=== PATIENT | female | born 1940 | race Caucasian/White ===

== ENCOUNTER 2018-11-13 07:36 | Inpatient (IN) ==
[~2018-11-13 07:36] MED LIST: ANTIVERT PO ONE; BENADRYL IV ONE; NS 1,000 ML IV ONE; REGLAN IV ONE
--- NOTE | 2018-11-13 08:04 | EKG Report ---
Test Performed on : 11/13/2018 08:02:15 AM Test Reason : Stroke like symptoms Blood Pressure : / mmHG Vent. Rate : 092 BPM Atrial Rate : 092 BPM P-R Int : 196 ms QRS Dur : 072 ms QT Int : 360 ms P-R-T Axes : 069 012 070 degrees QTc Int : 445 ms Normal sinus rhythm. with sinus arrhythmia. Normal ECG No previous ECGs available Unconfirmed Result
[2018-11-13 08:29] LABS: BASO# 0.03 X1000 (0.0-0.2); BASO% 0.5 % (0.0-0.8); EOS# 0.01 X1000 (0.0-0.7); EOS% 0.2 % (0.0-10.0); HEMATOCRIT 39.8 % (37.0-47.0); HEMOGLOBIN 13.1 g/dL (12.0-16.0); LYMPH# 1.08 X1000 (1.2-3.4); LYMPH% 17.4 % (20.5-51.1); MCH 29.4 PG (27-31); MCHC 32.9 g/dL (33-37); MCV 89.4 FL (81-99); MONO# 1.05 X1000 (0.11-0.59); MPV 9.2 FL (7.4-10.4); NEUT# 4.02 X1000 (1.4-6.5); NEUT% 64.9 % (42.2-75.2); PLT 351 X1000 (130-400); RBC 4.45 XMIL (4.2-5.4); RDW 13.2 % (11.5-14.5); WBC 6.19 X1000 (4.8-10.8)
[2018-11-13] MEDS ORDERED: REGLAN ONE (08:41)
[2018-11-13] MEDS ORDERED: ANTIVERT ONE ×2 (08:41→08:47)
[2018-11-13] MEDS ORDERED: BENADRYL ONE (08:42)
[2018-11-13] MEDS ORDERED: NS 1,000 ML ONE (08:42)
[2018-11-13 08:46] LABS: INR 0.93; PROTIME 13.2 Seconds (11.0-16.0)
[2018-11-13 08:47] LABS: PTT 34.7 Seconds (22.3-41.8)
[2018-11-13 08:53] LABS: AGAP 9; ALB/GLOB RATIO 1.9; ALBUMIN 4.6 g/dL (3.5-5.0); ALKALINE PHOSPHATASE 81 U/L (32-104); BUN 14 mg/dL (8-22); CALCIUM 9.2 mg/dL (8.8-10.2); CHLORIDE 96 mmol/L (98-107); COSMO 276; CREATININE 0.5 mg/dL (0.5-0.9); ESTIMATED GFR > 60; GLUCOSE 100 mg/dL (70-104); GOT 15 U/L (10-30); GPT 15 U/L (10-36); POTASSIUM 3.6 mmol/L (3.5-5.1); SODIUM 138 mmol/L (136-145); TCO2 33 mmol/L (25-35)
--- NOTE | 2018-11-13 09:05 | PROVIDER DOCUMENTATION ---
HPI-Neurological Disorder - General Chief Complaint: Weakness Stated Complaint: earache/weakness/n/v Time Seen by Provider: 11/13/18 07:36 Source: patient, EMS - History of Present Illness-Neuro Nature of Presenting Problem: SUdden onset bilateral ear pain, n/v and off balance feeling on waking this am. Has had similar symptoms in the past d/t "inner ear" problems. Brought by EMS, who reports "stroke scale negative," and normal vitals. Denies numbness or lateralizing symptoms. Does note generalized weakness. States has had ear problems all her life. This am she put sweet oil in both ear canal to relieve symptoms. Severity: reports: moderate Onset/Duration: reports: 1-3 hours ago Timing: reports: still present, constant Context: reports: seizure activity (dizzy) Approximate time patient was last seen normal?: 22:00 Character of Deficits: reports: new weakness (generalized) New weakness or altered sensation location:: reports: general (diffuse) Cognitive Baseline: alert, oriented x3 Gait Baseline: walks without assistance Associated Symptoms: reports: decreased ability to walk or stand, dizziness, nausea, trouble walking, weakness Similar Symptoms Previously?: Yes ("inner ear") Recently seen or treated by another doctor?: No Review of Systems - Adult - REVIEW OF SYSTEMS - ADULT Constitutional: reports: no symptoms reported Eyes: reports: no symptoms reported Ears, Nose, Mouth & Throat: reports: see HPI, ear pain. denies: ear discharge, hearing loss, tinnitus Cardiovascular: reports: no symptoms reported Respiratory: reports: no symptoms reported Gastrointestinal: reports: no symptoms reported Genitourinary: reports: no symptoms reported Musculoskeletal: reports: no symptoms reported Integumentary: reports: no symptoms reported Neurological: reports: see HPI, dizziness/vertigo Psychiatric: reports: no symptoms reported Endocrine: reports: no symptoms reported Hematologic/Lymphatic: reports: no symptoms reported Allergic/Immunologic: reports: no symptoms reported All Other Systems: Reviewed and Negative Past History - Adult - PAST MEDICAL HISTORY-ADULT Review of Records: reports: Old Records Reviewed, Nursing Assessment Review, Medications Reviewed, Social history reviewed & non-contributory. Major Childhood Illnesses: reports: denies history Cardiovascular: reports: HTN Respiratory: reports: denies history Gastrointestinal: reports: denies history Obstetrical/Gynecological: reports: denies history Genitourinary: reports: denies history Musculoskeletal: reports: denies history Neurological: reports: CVA Endocrine/Immune: reports: denies history Other Conditions: reports: denies history - PRIOR SURGERIES/PROCEDURES Surgical/Procedure History: reports: reviewed, not pertinent - IMMUNIZATION STATUS Childhood Immunizations: UTD - FAMILY HISTORY Family History: reviewed, not pertinent - SOCIAL HISTORY Smoking: non-smoker Substance Use: none/never Alcohol Use Frequency: never Living Situation: family Physical Exam- Neurological - Physical Exam-Neuro Initial Vital Signs Reviewed: Yes General Appearance: appears well, alert, no apparent distress Eye Exam: bilateral eye: normal inspection, PERRL, EOMI HENMT: normocephalic/atraumatic, moist mucous membranes, normal ENT inspection, TMs normal, pharynx normal Head Injury: no evidence of injury Neck: non-tender, full range of motion, supple, normal inspection Respiratory: chest non-tender, lungs clear, normal breath sounds, no pleuratic chest pain, no respiratory distress, no accessory muscle use Cardiovascular: normal peripheral pulses, regular rate, rhythm, no edema, no gallop, no JVD, no murmur Abdominal Exam: normal bowel sounds, non tender, soft, no organomegaly, no pulsatile mass Lymphatic: no adenopathy Extremity: normal range of motion, non-tender, normal gait, normal inspection, no pedal edema, no calf tenderness, 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 Exam: normal hearing, normal speech, PERRL Coordination/Gait: normal finger to nose, normal gait, negative Romberg's sign Motor/Sensory: no motor deficit, no sensory deficit, no pronator drift, negative Babinski's sign, positive Babinski's sign 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 II-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 nml as tested, grossly normal, no motor/sensory deficits, abnormal cerebellar tests, abnormal gait (ataxia) Integumentary: normal color, normal turgor Psych/Mental Status: normal mood/affect, normal thought content, normal thought process, oriented x 3, anxious - Glascow Coma Scale Best Eye Response: (4) open spontaneously Best Verbal Response: (5) oriented Best Motor Response: (6) obeys commands Progress - PLAN OF CARE/RESULTS Progress/Plan/Lab Results: Vital Signs - 8 hr 11/13/18 08:11 Temperature 98.7 F Pulse Rate 91 H Respiratory Rate 18 Blood Pressure 181/92 O2 Sat by Pulse Oximetry 96 Laboratory Results - last 24 hr 11/13/18 11/13/18 11/13/18 08:09 08:09 08:09 WBC 6.19 RBC 4.45 Hgb 13.1 Hct 39.8 MCV 89.4 MCH 29.4 MCHC 32.9 L RDW Std Deviation 13.2 Plt Count 351 MPV 9.2 Immature Gran % (Auto) 0.0 Neut % (Auto) 64.9 Lymph % (Auto) 17.4 L [place] % (Auto) 17.0 H Eos % (Auto) 0.2 Baso % (Auto) 0.5 Immature Gran # (Auto) 0.00 Neut # (Auto) 4.02 Lymph # (Auto) 1.08 L [place] # (Auto) 1.05 H Eos # (Auto) 0.01 Baso # (Auto) 0.03 PT 13.2 INR 0.93 PTT (Actin FS) 34.7 Sodium 138 Potassium 3.6 Chloride 96 L Carbon Dioxide 33 Anion Gap 9 BUN 14 Creatinine 0.5 Estimated GFR/1.73 m2 > 60 BUN/Creatinine Ratio 28 Glucose 100 POC Glucose Calculated Osmolality 276 Calcium 9.2 Total Bilirubin 0.30 AST 15 ALT 15 Alkaline Phosphatase 81 Troponin T Total Protein 7.0 Albumin 4.6 Globulin 2.4 Albumin/Globulin Ratio 1.9 Urine Source Urine Color Urine Turbidity Urine pH Ur Specific Cisco Urine Protein Ur Glucose (Stick) Ur Ketones (Stick) Urine Blood Urine Nitrite Urine Bilirubin Urobilinogen Dipstick Urine Leukocytes Urine WBC (Auto) Urine RBC (Auto) U Epithel Cells (Auto) Urine Bacteria (Auto) Urine Opiates Screen Ur Oxycodone Screen Ur Methadone, Qual Ur Barbiturates Screen Ur Phencyclidine Scrn Ur Amphetamines Screen U Benzodiazepines Scrn Urine Cocaine Screen U Cannabinoids Screen 11/13/18 11/13/18 11/13/18 08:09 08:10 09:56 WBC RBC Hgb Hct MCV MCH MCHC RDW Std Deviation Plt Count MPV Immature Gran % (Auto) Neut % (Auto) Lymph % (Auto) [place] % (Auto) Eos % (Auto) Baso % (Auto) Immature Gran # (Auto) Neut # (Auto) Lymph # (Auto) [place] # (Auto) Eos # (Auto) Baso # (Auto) PT INR PTT (Actin FS) Sodium Potassium Chloride Carbon Dioxide Anion Gap BUN Creatinine Estimated GFR/1.73 m2 BUN/Creatinine Ratio Glucose POC Glucose 105 H Calculated Osmolality Calcium Total Bilirubin AST ALT Alkaline Phosphatase Troponin T < 0.010 Total Protein Albumin Globulin Albumin/Globulin Ratio Urine Source CLEAN CATCH Urine Color YELLOW Urine Turbidity HAZY Urine pH 8.5 Ur Specific Cisco 1.006 Urine Protein NEGATIVE Ur Glucose (Stick) NEGATIVE Ur Ketones (Stick) NEGATIVE Urine Blood NEGATIVE Urine Nitrite NEGATIVE Urine Bilirubin NEGATIVE Urobilinogen Dipstick NORMAL Urine Leukocytes LARGE A Urine WBC (Auto) TNTC A Urine RBC (Auto) <10 U Epithel Cells (Auto) <10 Urine Bacteria (Auto) 3+ Urine Opiates Screen Ur Oxycodone Screen Ur Methadone, Qual Ur Barbiturates Screen Ur Phencyclidine Scrn Ur Amphetamines Screen U Benzodiazepines Scrn Urine Cocaine Screen U Cannabinoids Screen 11/13/18 09:56 WBC RBC Hgb Hct MCV MCH MCHC RDW Std Deviation Plt Count MPV Immature Gran % (Auto) Neut % (Auto) Lymph % (Auto) [place] % (Auto) Eos % (Auto) Baso % (Auto) Immature Gran # (Auto) Neut # (Auto) Lymph # (Auto) [place] # (Auto) Eos # (Auto) Baso # (Auto) PT INR PTT (Actin FS) Sodium Potassium Chloride Carbon Dioxide Anion Gap BUN Creatinine Estimated GFR/1.73 m2 BUN/Creatinine Ratio Glucose POC Glucose Calculated Osmolality Calcium Total Bilirubin AST ALT Alkaline Phosphatase Troponin T Total Protein Albumin Globulin Albumin/Globulin Ratio Urine Source Urine Color Urine Turbidity Urine pH Ur Specific Cisco Urine Protein Ur Glucose (Stick) Ur Ketones (Stick) Urine Blood Urine Nitrite Urine Bilirubin Urobilinogen Dipstick Urine Leukocytes Urine WBC (Auto) Urine RBC (Auto) U Epithel Cells (Auto) Urine Bacteria (Auto) Urine Opiates Screen NONE DETECTED Ur Oxycodone Screen NONE DETECTED Ur Methadone, Qual NONE DETECTED Ur Barbiturates Screen NONE DETECTED Ur Phencyclidine Scrn NONE DETECTED Ur Amphetamines Screen NONE DETECTED U Benzodiazepines Scrn PRESUMPTIVE POSITIVE A Urine Cocaine Screen NONE DETECTED U Cannabinoids Screen NONE DETECTED Orders Category Date Time Status Cardiac Monitoring DIRECTED Care 11/13/18 07:35 Active Finger Stick Blood Sugar (ED) DIRECTED Care 11/13/18 07:35 Active Oxygen Therapy- ED Nursing DIRECTED Care 11/13/18 07:35 Active Saline Loc NOW Care 11/13/18 07:35 Active Straight Catheterization ORDERED Care 11/13/18 10:43 Active CHEST-PORTABLE [RAD] Stat Exams 11/13/18 07:[address] HEAD W/O CONTRAST [CT] Stat Exams 11/13/18 07:35 Completed CBC WITH ELECTRONIC DIFF [HEME] Stat Lab 11/13/18 08:09 Completed COMPREHENSIVE METABOLIC PANEL [CHEM] Stat Lab 11/13/18 08:09 Completed PROTIME WITH INR [COAG] Stat Lab 11/13/18 08:09 Completed PTT [COAG] Stat Lab 11/13/18 08:09 Completed TROPONIN T Stat Lab 11/13/18 08:09 Completed URINALYSIS W/POSS RFLX CULT [URINALYSIS] Stat Lab 11/13/18 09:56 Completed URINE CULTURE [RM] Routine Lab 11/13/18 10:31 Received URINE DRUG SCREEN Stat Lab 11/13/18 09:56 Completed 0.9% Sodium Chloride Inj [Ns] 1,000 ml Med 11/13/18 08:42 Discontinued .ROUTE As directed 0.9% Sodium Chloride Inj [Ns] 1,000 ml Med 11/13/18 07:36 Discontinued IV 999 mls/hr CefTRIAXONE [Rocephin] 1 gm Med 11/13/18 11:18 Active 0.9% Sodium Chloride Inj [Ns] 50 ml IV NOW Diphenhydramine [Benadryl] Med 11/13/18 07:36 Discontinued 25 mg IV NOW ONE Diphenhydramine [Benadryl] Med 11/13/18 08:42 Discontinued 50 mg .ROUTE .STK-MED ONE Labetalol Med 11/13/18 09:10 Discontinued 20 mg IV NOW ONE Labetalol Med 11/13/18 11:21 Discontinued 20 mg IV NOW ONE Meclizine [Antivert] Med 11/13/18 08:41 Discontinued 12.5 mg .ROUTE .STK-MED ONE Meclizine [Antivert] Med 11/13/18 08:47 Discontinued 37.5 mg .ROUTE .STK-MED ONE Meclizine [Antivert] Med 11/13/18 07:36 Discontinued 50 mg PO NOW ONE Metoclopramide [Reglan] Med 11/13/18 08:41 Discontinued 10 mg .ROUTE .STK-MED ONE Metoclopramide [Reglan] Med 11/13/18 07:36 Discontinued 10 mg IV NOW ONE EKG [EKG] Stat Ther 11/13/18 07:35 Draft Result Diagrams: 11/13/18 08:09 11/13/18 08:09 - REASSESSMENT Reassessment #1 Time Reassessed: 11:20 Status: unchanged (still with dizziness/hypertensive, doesn't feel well despite multiple meds. WIll give additional labetalol dose and ask hospitalist to admit) - XRAY 1 XRAY Study: Chest Impression: Normal, See EMR Report (EXAM: CHEST-PORTABLE HISTORY: stroke like symptoms TECHNIQUE: Chest single view COMPARISON: 02/06/2016 FINDINGS: The lungs are well expanded. The heart is not enlarged. The vessels are not distended. There are no infiltrates. No effusion identified. Mild scoliosis. IMPRESSION: Negative exam. Electronically signed by Williams Caicedo 11/13/2018 9:23 AM 11/13/18 0923 Interpreting Physician: Williams Caicedo MD Dictated Date/Time: 11/13/18 09) - CT/MRI 1 CT Study: Head Impression: Abnormal, See EMR Report ( EXAM: CT HEAD W/O CONTRAST HISTORY: stroke like symptoms TECHNIQUE: CT head without contrast. The exam was not completed until 9:50 AM. COMPARISON: None. FINDINGS: No parenchymal hemorrhage. No epidural or subdural hematoma. No subarachnoid hemorrhage. Old right cerebellar infarct. There are chronic microvascular ischemic changes. No mass identified on this noncontrasted exam. No hydrocephalus. No sinus opacification. 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 Electronically signed by Williams Caicedo 11/13/2018 9:53 AM 11/13/18 0953 Interpreting Physician: Williams Caicedo MD Dictated Date/Time: 11/13/18 0951 cc: Janes Mata MD; Gama Camacho) - CONSULTS/PCP/HOSPITALIST Notification #1 *Consult/PCP/Hospitalist*: YAIR Rosales Time Discussed: 11:26 Reason/Comments: Admit to [facility] Consult Disposition: Will see in ED Departure - Departure Date of Disposition Decision: 11/13/18 Time of Disposition Decision: 11:27 DIAGNOSIS: Dizziness, Ataxia, Hypertensive urgency, Complicated UTI (urinary tract infection) Disposition: ADMITTED INPATIENT 09 Certified Medical Emergency: Emergent Condition: Fair Referrals and Follow-Ups: Gama Camacho [Primary Care Provider] - - Critical Care Note This patient required my direct & personal management of CC.: Yes Total Time (mins): 40 (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 Attestation - Physician/ PAOLA Attestation Patient care was provided by Advanced Practice Provider:: No The physician spent face to face time with patient:: Yes Advanced Practice Provider documentation review:: Supervising physician onsite and consulted in the evaluation and care of this patient. The physician did have a face to face encounter with the patient. - NIH Stroke Scale NIH Type: Initial Evaluation Level of Consciousness: 0-Alert LOC Questions (ask month and age): 0-Answers Both Correctly LOC Commands (ask to open & close eyes;make a fist, let go): 0-Obeys Both Correctly Best Gaze (horizontal eye movement): 0-Normal Visual (use finger movement, counting or visual threat): 0-No Visual Loss Facial Palsy (show teeth or raise eyebrows & close eyes tght: 0-Symmetrical Movement Motor Function-left arm: 0-Normal Motor Function-right arm: 0-Normal Motor Function-left le-Normal Motor Function-right le-Normal Limb Ataxia(biedhs-[id number], or heel to joshi): 0-No Ataxia Sensory(pin prick to face,arms,trunk,legs-compare side/side): 0-No Ataxia Best Language(name item/read sentence.Ex-Down to Earth): 0-No Aphasia Dysarthria(Pt read words or say words Ex.Mama,Tip-Top,Thanks: 0-Normal Articulation Extinction and Inattention: 0-Normal NIH Total Score: 0 Modified Elaine Score Criteria: 1-no significant disability despite symptoms Stroke tPA Guidelines - Inclusion Criteria for IV tPA 18 years old or older: Yes Ischemic stroke with measurable deficit: No Onset <3 hours ago *OR* 3-4.5 hours ago: Yes - Consultation Candidate for:: NOT A CANDIDATE (symptoms began on wakeup)
[2018-11-13] MEDS ORDERED: LABETALOL IV ONE ×2 (09:10→11:21)
--- NOTE | 2018-11-13 09:25 | Diag Imaging Result Doc PS360 ---
EXAM: CHEST-PORTABLE HISTORY: stroke like symptoms TECHNIQUE: Chest single view COMPARISON: 02/06/2016 FINDINGS: The lungs are well expanded. The heart is not enlarged. The vessels are not distended. There are no infiltrates. No effusion identified. Mild scoliosis. IMPRESSION: Negative exam. Electronically signed by Williams Caicedo 11/13/2018 9:23 AM
--- NOTE | 2018-11-13 09:55 | Diag Imaging Result Doc PS360 ---
EXAM: CT HEAD W/O CONTRAST HISTORY: stroke like symptoms TECHNIQUE: CT head without contrast. The exam was not completed until 9:50 AM. COMPARISON: None. FINDINGS: No parenchymal hemorrhage. No epidural or subdural hematoma. No subarachnoid hemorrhage. Old right cerebellar infarct. There are chronic microvascular ischemic changes. No mass identified on this noncontrasted exam. No hydrocephalus. No sinus opacification. 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 Electronically signed by Williams Caicedo 11/13/2018 9:53 AM
[2018-11-13 10:03] LABS: URINE SOURCE CLEAN CATCH
[2018-11-13 10:12] LABS: BILIRUBIN URINE NEGATIVE (NEGATIVE); BLOOD URINE NEGATIVE (NEGATIVE); COLOR YELLOW; GLUCOSE URINE NEGATIVE (NEGATIVE); KETONE URINE NEGATIVE (NEGATIVE); LEUKOCYTES URINE LARGE (NEGATIVE); NITRITE URINE NEGATIVE (NEGATIVE); PH URINE 8.5; PROTEIN URINE NEGATIVE (NEGATIVE); SP GRAVITY URINE 1.006; TURBIDITY URINE HAZY (CLEAR); UROBILINOGEN URINE NORMAL (NORMAL)
[2018-11-13 10:13] LABS: UR EPITHELIAL CELLS <10 /HPF (<10); URINE BACTERIA 3+ /HPF; URINE RBC <10 /HPF (<10); URINE WBC TNTC /HPF (<10)
[2018-11-13 10:36] LABS: UR AMPHETAMINES QUAL NONE DETECTED (NONE DETECT); UR BARBITUATES QUAL NONE DETECTED (NONE DETECT); UR BENZODIAZEPIN QUAL PRESUMPTIVE POSITIVE (NONE DETECT); UR CANNABINOIDS QUAL NONE DETECTED (NONE DETECT); UR COCAINE QUAL NONE DETECTED (NONE DETECT); UR METHADONE QUAL NONE DETECTED (NONE DETECT); UR OPIATES QUAL NONE DETECTED (NONE DETECT); UR OXYCODONE QUAL NONE DETECTED (NONE DETECT); UR PCP QUAL NONE DETECTED (NONE DETECT)
[2018-11-13] MEDS ORDERED: ROCEPHIN 1 GM in NS 50 ML IV ONE (11:18)
--- NOTE | 2018-11-13 13:14 | HISTORY AND PHYSICAL ---
HISTORY OF PRESENT ILLNESS: Ms. Mcgregor is an 78-year-old. She is followed by Dr. Gama Camacho in [place]. She has had a history of labyrinth neuritis and vertigo, and she has had spells that have been pretty severe. PAST MEDICAL HISTORY: In 2013, she had a cerebellar stroke. Since that time, she has had trouble with urinary retention so I assume it is neurogenic urinary retention. She does self- catheterizations. She has a history of hypertension, but other than that, really not much past medical history. ALLERGIES: No known drug allergies. FAMILY HISTORY: She does not report any history of this vertigo in her family and no cardiac or renal disease. SOCIAL HISTORY: Negative for alcohol or tobacco or illicit drugs. REVIEW OF SYSTEMS: She denies any weight loss or gain. No fever or chills. HEENT/Neurological: She has had this vertigo for the last 24 hours. It has been pretty severe. Has still hold her head still. She has some lateral nystagmus to the left. It is accompanied by nausea. In the past, she has been treated with Antivert. I do not see any other new focal neurologic signs and no other focal neurologic complaints. Rest review of systems: No shortness of breath. Cardiovascular: No chest pain or tachy palpitation. Gastrointestinal and Genitourinary: Just some nausea accompanying the vertigo. No change in her bowels or her bowel habits. No gross hematuria or dysuria. She does have neurogenic bladder for which she does self-catheterizations I think q.4 h. We are going to go ahead and put a Sykes catheter in. Endocrinologic/Hematologic: No significant history. Musculoskeletal/Neurologic: As above. I do not see any new focal deficits. PHYSICAL EXAMINATION: GENERAL: In the emergency room, she is afebrile. Awake and alert and oriented x3. HEENT: Pupils are equal and round. Lateral nystagmus seems to be more prominent to the left. External canals are clear. Tympanic membranes appear unremarkable. Oral and nasal mucosa unremarkable. NECK: No cervical or supraclavicular adenopathy. No thyromegaly. Neck is supple. LUNGS: Clear in all lung thibodeaux. CARDIOVASCULAR: Regular rhythm and rate without murmur or S3. ABDOMEN: Soft. SKIN: Warm and dry. No rashes. No lesions. VITAL SIGNS: Temperature 98.7 degrees, pulse 90, respirations 18, blood pressure 181/92. DIAGNOSTIC STUDIES: White count 6190, hematocrit 39, platelet count 351,000. Sodium 138, potassium 3.6, chloride 96, BUN 14, creatinine 0.5, calcium 9.2, AST 15, ALT is 15. Troponin less than 0.01. Albumin 4.6. Pro-time is 13.2, PTT is 34. Urinalysis: Presumptive positive for benzodiazepines but negative for opiates, oxycodone, methadone, barbiturates, phencyclidine, amphetamines, cocaine, and cannabinoids. Urine: Zxl-[id number]-nl count white blood cells. 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 We will re-culture her urine and give her a little higher dose of Keflex IV. Chest x-ray on presentation: Negative. No infiltrates. Cardiomediastinal silhouette unremarkable. Lungs are well expanded. Her head CT without contrast: No hemorrhage. Old right cerebellar infarct with chronic microvascular ischemic changes, nothing new. ASSESSMENT AND PLAN: Labyrinth neuritis with severe vertigo accompanied by lateral nystagmus. I do not see any new focal neurologic deficits and do not see any sign of extension of cerebellar infarct. Of course, probably would need an MRI to be more conclusive on that. We are going to try some Antivert high dose 25 mg q.6 h. p.o., and I am going to give her some Solu-Medrol. We will probably also put her on some guaifenesin, just to see if it will help, guaifenesin ER 1200 mg twice a day. I will give her fluids at normal saline 100 mL an hour. We will watch her blood pressure. I think her blood pressure is a little high because of her labyrinthitis and vertigo. We can give her some p.r.n. to help with blood pressure. Hopefully, will not have to stay very long. I think it is reasonable to check her B12 and folate and also to check her T4 and TSH and make sure those are okay. cc: Kal [facility] MD
[2018-11-13] MEDS: KEFLEX PO SCH ×2 (13:34→21:43)
[2018-11-13] MEDS: ANTIVERT PO SCH ×2 (13:34→19:02)
[2018-11-13] MEDS: SOLU-MEDROL IV SCH ×2 (13:36→21:44)
[2018-11-13] MEDS: NS 1,000 ML IV SCH (13:38)
[2018-11-13 15:22] LABS: FREE T4 1.43 ng/dL (0.93-1.70); TSH 1.18 uIUmL (0.27-4.20)
[2018-11-13] MEDS: ZOFRAN IV PRN ×2 (19:02→23:25)
[2018-11-13] MEDS ORDERED: ULTRAM PO ONE (20:38)
[2018-11-13] MEDS: TYLENOL PO PRN (21:43)
[2018-11-13] MEDS: MUCINEX PO SCH (21:44)
[2018-11-14] MEDS ORDERED: SODIUM CHLORIDE 0.9% INJ ONE (01:41)
[2018-11-14] MEDS ORDERED: PHENERGAN IV ONE (01:41)
[2018-11-14] MEDS: NS 1,000 ML IV SCH (02:05)
[2018-11-14] MEDS ORDERED: ATIVAN IV ONE (02:33)
[2018-11-14] MEDS: KEFLEX PO SCH ×4 (03:46→20:31)
[2018-11-14] MEDS: SOLU-MEDROL IV SCH ×2 (03:47→13:04)
[2018-11-14] MEDS: TYLENOL PO PRN ×2 (03:54→10:19)
[2018-11-14 06:53] LABS: HEMOGLOBIN 14.2 g/dL (12.0-16.0); MCH 30.1 PG (27-31); MCHC 33.8 g/dL (33-37); MPV 9.4 FL (7.4-10.4); RBC 4.72 XMIL (4.2-5.4); RDW 13.4 % (11.5-14.5); WBC 9.24 X1000 (4.8-10.8)
[2018-11-14 07:24] LABS: AGAP 17; BUN 10 mg/dL (8-22); CALCIUM 9.1 mg/dL (8.8-10.2); CHLORIDE 103 mmol/L (98-107); COSMO 285; CREATININE 0.4 mg/dL (0.5-0.9); ESTIMATED GFR > 60; GLUCOSE 158 mg/dL (70-104); POTASSIUM 3.3 mmol/L (3.5-5.1); SODIUM 142 mmol/L (136-145); TCO2 22 mmol/L (25-35)
[2018-11-14] MEDS: ANTIVERT PO SCH ×3 (09:13→20:31)
[2018-11-14] MEDS: MUCINEX PO SCH ×2 (09:13→20:31)
[2018-11-14] MEDS ORDERED: XANAX PO SCH (10:15)
[2018-11-14] MEDS: XANAX PO SCH ×3 (10:19→20:31)
[2018-11-14] MEDS: KLOR-CON PO SCH ×2 (11:05→14:07)
[2018-11-14] MEDS: PRILOSEC PO SCH ×2 (11:05→20:32)
[2018-11-14] MEDS: COZAAR PO SCH (11:05)
[2018-11-14] MEDS: ASPIRIN EC PO SCH (11:05)
[2018-11-14] MEDS: NORVASC PO SCH (11:05)
[2018-11-14] MEDS: TYLENOL ARTHRITIS PO SCH ×2 (11:16→20:32)
[2018-11-14] MEDS ORDERED: PHENERGAN IV PRN (13:11)
[2018-11-14] MEDS ORDERED: SODIUM CHLORIDE 0.9% INJ PRN (13:11)
[2018-11-14] MEDS: LIDODERM TOP SCH (14:16)
--- NOTE | 2018-11-14 15:11 | PROGRESS NOTE ---
DATE: 11/14/2018 INTERVAL HISTORY: No acute events overnight. The patient and her family were upset that her home medications could not be started. I explained to them about possible medications contributing to her ill health and that I wanted to assess her before I could resume that. SUBJECTIVE: Patient is feeling much better than yesterday. She denies any shortness of breath. She has been coughing recently more. She is complaining of intense neck pain and back pain which are chronic complaints. She is denying any more dizziness. She has not been able to get up yet. VITAL SIGNS: Temperature 99.7 degrees, pulse of 106, respiratory rate 16, blood pressure 150/65. She is saturating 94% on room air. PHYSICAL EXAMINATION: General: Does not appear in any acute distress. HEENT: Oral cavity is moist. Her pupils are bilaterally equal reacting to light. She has perception to light bilateral eyes. Lungs: Air entry bilaterally equal. No wheeze, rhonchi, crackles. Cardiovascular: S1, S2 normal. No murmur, rub, or gallop. Abdomen: Soft, nontender. Extremities: No lower extremity edema. Neurological: She is alert and oriented x3. Her hearing appears to be intact and she is able to understand my language. No facial drooping. No ptosis. Motor examination is bilaterally equal, 5/5 in upper and lower extremities. Reflexes are 2+ bilaterally. Sensation is intact. She has intact coordination without dysdiadochokinesia. LABS: Suggestive of hypokalemia, which is currently being repleted. MICROBIOLOGY: Urine culture has gram-negative joshua; sensitivities are pending. ASSESSMENT AND PLAN: 1. Acute onset bilateral ear pain with nausea and vomiting. This could be in the setting of her previously documented episodes of vestibular neuritis. She does have some symptoms of upper respiratory tract infection which could have triggered it. She has baseline mild hearing loss and there is no acute change in this, so labyrinthitis is less likely. I will treat her with intravenous steroids. I will also get an MRI of her brain to rule out new cerebellar infarct on top of her previous right cerebellar CVA. I will also get an ENT consult. 2. Others. Continue home alprazolam, amitriptyline for history of anxiety and insomnia. Continue home acetaminophen and tramadol for history of chronic back pain, neck pain, and arthritis. Continue cephalexin and follow up with urine culture results for history of multiple UTIs and neurogenic bladder. Continue Sykes catheter. Continue hydrochlorothiazide, losartan, and amlodipine for essential hypertension. 3. Disposition. I will have physical therapy evaluate the patient. I will await the MRI of the brain and ENT recommendations. Plan of care discussed with the patient's family and patient. All of their questions have been answered. cc: Alexander Antonio MD MTDD
--- NOTE | 2018-11-14 16:42 | Diag Imaging Result Doc PS360 ---
EXAM: MRI BRAIN W/WO CONTRAST INDICATION: Evaluate for new cerebellar CVA COMPARISON: CT dated 11/13/2018 and prior MRI dated 05/18/2017 FINDINGS: There is a prominent focus of wedge-shaped restricted diffusion involving the left cerebellar hemisphere extending to the vermis consistent with an acute infarct. It is not visualized on yesterday's CT when it was probably hyperacute. There is a second tiny focus of restricted diffusion involving the left cerebellar hemisphere inferolaterally. There is associated T2/FLAIR hyperintensity. There is stable encephalomalacia involving the right cerebellar hemisphere. There is stable patchy T2/FLAIR hyperintensity in the periventricular and subcortical white matter suggesting moderate microangiopathy. There is no discrete intracranial mass, mass effect, or intracranial hemorrhage. There is no evidence of abnormal intracranial enhancement. There is a small right mastoid air cell effusion. The surrounding soft tissues and bony structures are essentially unremarkable, otherwise. IMPRESSION: 1.Acute left cerebellar hemispheric infarct as described. 2.Other incidental/nonacute findings detailed above. Electronically signed by Mohan Schofield 11/14/2018 4:40 PM
[2018-11-14] MEDS: SINGULAIR PO SCH (20:31)
[2018-11-14] MEDS: ELAVIL PO SCH (20:32)
[2018-11-14] MEDS ORDERED: LIPITOR PO SCH (21:00)
[2018-11-15] MEDS: KEFLEX PO SCH ×2 (02:50→09:18)
[2018-11-15] MEDS ORDERED: SOLU-MEDROL IV SCH (06:00)
[2018-11-15] MEDS: ASPIRIN EC PO SCH (09:18)
[2018-11-15] MEDS: MUCINEX PO SCH ×2 (09:18→21:48)
[2018-11-15] MEDS: COZAAR PO SCH (09:18)
[2018-11-15] MEDS: NORVASC PO SCH (09:18)
[2018-11-15] MEDS: TYLENOL ARTHRITIS PO SCH ×2 (09:18→21:48)
[2018-11-15] MEDS: ANTIVERT PO SCH ×3 (09:18→17:02)
[2018-11-15] MEDS: ZANTAC PO SCH (09:18)
[2018-11-15] MEDS: HYDROCHLOROTHIAZIDE PO SCH (09:18)
[2018-11-15] MEDS: XANAX PO SCH ×3 (09:19→21:48)
[2018-11-15] MEDS: ULTRAM ER PO SCH (09:19)
[2018-11-15] MEDS: PRILOSEC PO SCH ×2 (09:19→21:48)
[2018-11-15] MEDS: LIDODERM TOP SCH (10:05)
[2018-11-15] MEDS ORDERED: KLOR-CON PO SCH (12:00)
[2018-11-15] MEDS: LEVAQUIN PO SCH (12:36)
[2018-11-15] MEDS ORDERED: NS 500 ML IV SCH (12:45)
--- NOTE | 2018-11-15 15:00 | Diag Imaging Result Doc PS360 ---
EXAM: CT ANGIOGRAM HEAD/NECK 11/15/2018 HISTORY: Evaluate for stenosis/thrombosis TECHNIQUE: This exam was performed using automated exposure control, adjustment of mA or kV according to patient size, and/or use of iterative reconstruction technique. COMMENT: 3-D MIPS were performed. There are atherosclerotic calcifications in the thoracic aorta. There is no evidence of dissection. 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 There are multiple nodular lesions in the thyroid gland particularly in the upper pole of the right lobe where there is a rounded hypodense nodule measuring 7 mm. There are atherosclerotic calcifications in the carotid bulbs bilaterally. Both common carotid arteries are patent. There is some narrowing of the proximal left internal carotid with apparent 50% diameter stenosis due to calcified plaque. There are atherosclerotic calcifications in the internal carotid siphons bilaterally. There is no evidence of occlusion or significant stenosis otherwise. There is a large encephalomalacic defect present in the left cerebellar hemisphere. There is also a defect in the inferior medial right cerebellar hemisphere. The abnormality on the left is more appreciable than on the previous examination of the head dated 11/13/2018. This may represent an involving infarct in the distribution of the superior cerebellar artery. 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 Ischemic changes in the cerebellum bilaterally, probably subacutely on the left. Electronically signed by Manoj Smith 11/15/2018 2:58 PM
--- NOTE | 2018-11-15 15:21 | PROGRESS NOTE ---
DATE: 11/15/2018 INTERVAL HISTORY: Patient got MRI of her brain yesterday which did detect new cerebellar CVA affecting left cerebellar region. The patient has been feeling slightly better today. She was able to stand up, and walk a few steps with the help of physical therapy. Echocardiogram has been ordered. Neurology consult has also been placed. SUBJECTIVE: She denies any chest pain or shortness of breath. She is still feeling very dizzy. I discussed with her about changing antibiotics for urinary tract infection. CT scan angiogram head and neck are pending. VITALS: Temperature 97.9 degrees, pulse 94, respiratory rate 18, blood pressure 140/80. She is saturating 99% on room air. Her orthostatic vitals were unremarkable yesterday. PHYSICAL EXAMINATION: Oral cavity is moist.Lungs: Air entry bilaterally equal. No wheeze, rhonchi or crackles. Heart: S1, S2 normal. Regular. No murmur, rub, or gallop. Abdomen: Soft, nontender. Extremities: No lower extremity edema. She is alert and oriented x3. 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 However, she has intact perception to light. She is able to move her eyes both sides of midline, able to raise eyebrows. Her speech appears intact. She has good cough reflex. No facial drooping. No ptosis. Her sensations are 5/5 bilateral upper and lower extremities. Power is 5/5 in bilateral upper and lower extremities. Reflexes: I did not check reflexes today. She does not have dysdiadochokinesia. I did not check her gait or finger- nose testing. LABORATORY: No CBC or BMP today, which I will recheck tomorrow. MICROBIOLOGY: Urine culture growing Enterobacter cloacae sensitive to Levaquin. IMAGING: Brain MRI suggestive of acute left cerebellar hemispheric infarct. ASSESSMENT AND PLAN: 1. Acute left cerebellar hemispheric infarct, probably causing her episode of dizziness and nausea on presentation. Allow permissive hypertension and hold antihypertensive medications for now. Continue current dose of aspirin, and increase the statin dose to 40 mg. She should get outpatient muscle enzymes, and liver function test as appropriate. I have discussed this with the patient's family members. Continue meclizine as needed. Follow up echocardiogram. CT scan angiography of head and neck reports as well as neurology evaluation to see if she should be on dual anti-platelet. 2. Prior history of documented vestibular neuritis. Her current episode now sounds more like related to CVA than vestibular neuritis. She does have baseline hearing impairment. I am holding her steroids for now. ENT consult has been placed. She should get outpatient ENT evaluation 3. Acute cystitis and neurogenic bladder with prior history of multiple UTI and current Enterobacter UTI. Continue Sykes catheter, and start patient on levofloxacin for a total of 7 days. 4. Outpatient Urology follow-up. 5. Others: Continue alprazolam and amitriptyline for history of anxiety and insomnia; acetaminophen and tramadol for history of chronic neck and back pain and arthritis; hold antihypertensive medication for allowing permissive hypertension and restart it 24 to 48 hours later. 6. Disposition: Continue physical therapy and occupational therapy. I will also have speech therapy evaluation, and the patient would like to go to rehab as appropriate. Social Work rehab consult has been placed. Plan of care extensively discussed with the patient's family at bedside. All of their questions have been answered. cc: Alexander Antonio MD
[2018-11-15] MEDS: ELAVIL PO SCH (21:48)
[2018-11-15] MEDS: LIPITOR PO SCH (21:48)
[2018-11-15] MEDS: SINGULAIR PO SCH (21:48)
--- NOTE | 2018-11-15 22:21 | CONSULTATION ---
DATE OF CONSULTATION: 11/15/2018 REASON FOR CONSULTATION: Ms. Mcgregor is 78 years old and she has had a stroke. HISTORY OF PRESENT ILLNESS: History from the patient is that she felt well and at baseline 3 days ago. She awoke 2 days ago feeling dizzy, nauseated and clumsy in the left arm. Dizziness was so prominent she could hardly stand. There might have been brief slurred speech. She did not have trouble swallowing. She has poor vision at baseline and did not notice vision to be worse than baseline. There was no diplopia. She had intense headache and pain in the ears. She presented to the hospital. Initial systolic blood pressures were 180s. Recent systolic blood pressures have ranged 130s to 160s. Workup includes brain MRI, showing acute left cerebellar infarction and old right cerebellar lucency typical of prior ischemic change. She reports having "stroke" approximately 20 years ago causing slurred speech with no definite focal neurologic feature and no definite right limb clumsiness. She has not had other stroke episode. There is no history of recent head injury. She has never had a seizure. She does not use ethanol. She does not smoke cigarettes. Risk factors include longstanding hypertension and dyslipidemia. She reports she has never had diagnosis of diabetes mellitus, but blood sugars are elevated here. MEDICATIONS: Home medicines include alprazolam, and urine drug screen was positive for benzodiazepine here. PHYSICAL EXAMINATION: On exam, she is awake, alert, attentive, appropriate. Speech is not dysarthric. Language function is intact. Memory is good. Head and neck are unremarkable. Visual thibodeaux are full, tested grossly by confrontational finger counting. Extraocular movements are full without significant left horizontal nystagmus apparent on brief confrontational exam. Facial motility is symmetric. Gag is intact. Tongue is midline. She can hear. I did not test her hearing carefully. Shoulder shrug is equal. Strength is good in the limbs. She did well on right [id number]. She had significant dystaxia with left [id number], mostly dysmetria with slight dyssynergia. Findings of ataxia are less prominent in the leg. I did not test her gait. She has a stocking pattern of sensory loss bilaterally. Reflexes are 2+ at the knees and barely trace at the ankles bilaterally. Plantar response is silent bilaterally. IMPRESSION AND PLAN: 1. Acute right cerebellar ischemic infarction with moderate left hemiataxia and no other definite deficit. She reports stable and improving in the last day or so. Regarding neurologic workup, I do not think we have to do anything further urgently. I think it would be reasonable to consider elective vascular workup. Echocardiogram and head CT angiogram are ordered. Carotid ultrasound or CT angiogram of the neck would be reasonable, but not urgent. I would continue aspirin, continue statin, continue treating blood pressure cautiously, consider treating blood sugar. Further plans will depend on these reports and on her clinical course. 2. She has clinical evidence of peripheral neuropathy, possibly diabetic neuropathy. She has significant family history of diabetes mellitus and some elevated blood sugars here. I do not think neuropathy needs urgent attention, but I would treat blood sugar aggressively. Thanks for asking Neurology to see Ms. Mcgregor. cc: MD LEE Villalta III
[2018-11-16 06:21] LABS: AGAP 11; BUN 16 mg/dL (8-22); CALCIUM 9.1 mg/dL (8.8-10.2); CHLORIDE 100 mmol/L (98-107); COSMO 275; CREATININE 0.5 mg/dL (0.5-0.9); ESTIMATED GFR > 60; GLUCOSE 97 mg/dL (70-104); POTASSIUM 3.8 mmol/L (3.5-5.1); SODIUM 137 mmol/L (136-145); TCO2 26 mmol/L (25-35)
[2018-11-16] MEDS: MUCINEX PO SCH (08:38)
[2018-11-16] MEDS: PRILOSEC PO SCH ×2 (08:38→22:25)
[2018-11-16] MEDS: ASPIRIN EC PO SCH (08:38)
[2018-11-16] MEDS: XANAX PO SCH ×3 (08:38→22:26)
[2018-11-16] MEDS: TYLENOL ARTHRITIS PO SCH ×2 (08:38→22:25)
[2018-11-16] MEDS: ULTRAM ER PO SCH (08:39)
[2018-11-16] MEDS: LEVAQUIN PO SCH (08:40)
[2018-11-16] MEDS: ZANTAC PO SCH (08:40)
[2018-11-16] MEDS: ANTIVERT PO SCH (08:41)
[2018-11-16] MEDS: LIDODERM TOP SCH (08:44)
--- NOTE | 2018-11-16 09:40 | ECHO REPORT ---
ORDER DATE: 11/15/2018 INTERPRETING PHYSICIAN: Barron Cuba MD. CLINICAL INDICATIONS: Stroke. M-MODE MEASUREMENTS: Left ventricle end diastole: 4.3 cm. Left ventricle end systole: 1.8 cm. Posterior wall: 0.8 cm. Interventricular septum: 1.0 cm. Left atrium: 3.7 cm. Aortic diameter: 3.6 cm. SUMMARY OF 2-DIMENSIONAL IMAGIN. The left ventricular function is normal, ejection fraction of 69%. There is no wall motion abnormality. The chamber is not enlarged. 2. There is mild calcification of mitral annulus. 3. The mitral valve opens normally. Color flow mapping unremarkable. 4. The pulse wave Doppler of mitral inflow shows an unusual filling pattern that suggests fusion of E and A wave, however, the patient may be in atrial flutter and that may explain this appearance. 5. Diastolic function cannot be properly evaluated in this case. 6. The velocity of the mitral annulus appears to be within normal range on the septal side at 7 and on the lateral side appears to be 8 cm/sec suggesting normal diastolic function. 7. The pulmonary venous flow appears to be grossly normal. 8. The aortic valve shows some sclerosis of the cusps without stenosis. 9. The pulmonic valve is unremarkable. 10.The tricuspid valve shows mild degree of regurgitation. The pulmonary pressure is estimated at 27 mmHg. 11.There is no pericardial effusion, no mass, and no thrombus. Clinical correlation is recommended. cc: MD Alexander Larose MD
--- NOTE | 2018-11-16 11:28 | PROGRESS NOTE ---
DATE: 11/16/2018 SUBJECTIVE: Ms. Mcgregor is awake and alert. She does not have any new complaints. She thinks dizziness might be a little bit less prominent today. She is not having headache right now. OBJECTIVE: Exam shows continued dystaxia with the left arm. There is no finding in the right arm. She has good lateral eye movement without nystagmus apparent. Visual thibodeaux are full. Facial motility is symmetric. Tongue is midline. Speech is not dysarthric. ASSESSMENT AND PLAN: I encouraged her to be careful with activities, particularly gait. We discussed potential bleeding complications with combination antiplatelet management. I believe best management would be to recommend aspirin and clopidogrel together, short term, probably 3 months if tolerated. If she has falls and bruising, we can reconsider. No other suggestions right now from Neurology. Thanks for asking me to see Ms. Mcgregor. cc: Genna Riley III, MD
[2018-11-16] MEDS ORDERED: ANTIVERT PO PRN (12:13)
[2018-11-16] MEDS: PLAVIX PO SCH (14:12)
--- NOTE | 2018-11-16 14:21 | PROGRESS NOTE ---
DATE: 11/16/2018 INTERVAL HISTORY: She underwent CT scan angiography of head and neck, which had suggested about 50% stenosis of left internal carotid artery which was not hemodynamically significant. Neurology had evaluated the patient, and agreed with the recommendations. 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 There was a concern for atrial flutter. However, patient did not have any telemetry events so it could be just related to her high heart rate. SUBJECTIVE: Patient is feeling much better than she did before. Denies any new complaints. She was able to sit on the potty chair. We discussed about possible rehab once the insurance approval happens. VITALS: Currently, temperature 97.7 degrees, pulse 100, respiratory rate 18, blood pressure 160/88 and saturating 100% on room air. PHYSICAL EXAMINATION: General: Does not appear in any acute distress. HEENT: Oral cavity is moist. Lungs: Air entry bilaterally equal. No wheeze, rhonchi, or crackles. Cardiovascular: S1, S2 normal. No murmur, rub, or gallop. Abdomen: Soft, nontender. Extremities: No lower extremity edema. Neurologic: She is alert and oriented x3. She does have visual impairment on both eyes. However, she has perception to light and she definitely can have some vision where she is able to imitate my actions on neurological examination. She is able to lift both upper and lower extremity above ground level. 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 LABORATORY DATA: Her BMP suggests resolution of hypokalemia. Normal kidney function. IMAGING: Echocardiogram had normal left ventricular ejection fraction. No mitral valve pathology. Apparently, patient mentioned that a doctor had previously told her that she had mitral valve prolapse, which is not visible on this echocardiogram. ASSESSMENT AND PLAN: 1. Acute left cerebellar hemispheric infarct leading to dizziness and nausea on presentation with prior history of right cerebellar infarct. Continue aspirin, high dose of atorvastatin, and add Plavix. Resume her antihypertensive medications. Bleeding risk is discussed with the patient, and they agreed with current management. 2. History of vestibular neuritis. Her current episode is unlikely to be related to that. She does have baseline hearing impairment. ENT recommendation is pending. She should get outpatient evaluation. 3. Acute cystitis with prior history of multiple UTIs and neurogenic bladder requiring self catheterization. Continue levofloxacin for Enterobacter UTI for a total of 7 days and outpatient Urology follow-up. 4. Others: Continue alprazolam and amitriptyline for history of anxiety and insomnia; acetaminophen and tramadol for history of chronic neck and back pain for arthritis. 5. Disposition: Continue physical therapy. We are awaiting insurance approval, and the plan is for her to go to [facility]. Continue physical therapy, occupational therapy and speech therapy. Plan of care discussed with the patient's family. All of their questions have been answered satisfactorily. cc: Alexander Antonio MD
[2018-11-16] MEDS: SINGULAIR PO SCH (22:25)
[2018-11-16] MEDS: LIPITOR PO SCH (22:25)
[2018-11-16] MEDS: ELAVIL PO SCH (22:25)
[2018-11-17] MEDS: PLAVIX PO SCH (09:04)
[2018-11-17] MEDS: TYLENOL ARTHRITIS PO SCH ×2 (09:04→21:48)
[2018-11-17] MEDS: PRILOSEC PO SCH ×2 (09:05→21:39)
[2018-11-17] MEDS: ZANTAC PO SCH (09:05)
[2018-11-17] MEDS: NORVASC PO SCH (09:05)
[2018-11-17] MEDS: LEVAQUIN PO SCH (09:05)
[2018-11-17] MEDS: LIDODERM TOP SCH (09:06)
[2018-11-17] MEDS: HYDROCHLOROTHIAZIDE PO SCH (09:06)
[2018-11-17] MEDS: ASPIRIN EC PO SCH (09:06)
[2018-11-17] MEDS: XANAX PO SCH ×3 (09:11→21:39)
[2018-11-17] MEDS: ULTRAM ER PO SCH (09:17)
[2018-11-17] MEDS: COZAAR PO SCH (09:20)
[2018-11-17] MEDS: MIRALAX PO SCH ×2 (17:31→21:39)
[2018-11-17] MEDS: ELAVIL PO SCH (21:39)
[2018-11-17] MEDS: LIPITOR PO SCH (21:39)
[2018-11-17] MEDS: SINGULAIR PO SCH (21:39)
--- NOTE | 2018-11-18 02:40 | PROGRESS NOTE ---
DATE: 11/17/2018 INTERVAL HISTORY: No acute events. The patient would like me to remove her Sykes catheter. She also wants a bowel regimen. She states she was able to walk until the end of the room using a walker. Denies anymore dizziness. However, complains of headache. PHYSICAL EXAMINATION: vital signs: Temperature 99.6 degrees, pulse 95, respiratory rate of 18, blood pressure of 150/84, saturating 97% on room air. General: Does not appear in any acute distress. Oral cavity is moist. Air entry bilaterally equal. No wheeze, rhonchi, or crackles. S1, S2 normal, regular. No murmur, rub, or gallop. Abdomen is soft, nontender. No lower extremity edema. She is alert and oriented x3. She has visual impairment in both eyes. However, she has preserved perception to light, and she is able to have gross vision where she could imitate my actions during neurological examination. She is able to lift both upper and lower extremities above ground level. On my examination, she does not demonstrate any dysdiadochokinesia. LABORATORY: No CBC or BMP today. ASSESSMENT AND PLAN: 1. Acute left cerebellar hemispheric infarct with past medical history of right cerebellar infarct leading to dizziness and nausea on presentation. Continue aspirin, high-dose statin, and add Plavix as per Neurology recommendation. Resume antihypertensive medication including her home amlodipine, hydrochlorothiazide, and losartan, and titrate the dose according to her response. 2. History of vestibular neuritis. However, current episode sounds more related to cerebellar infarction. At the time of admission, she was treated with intravenous steroids, which I stopped. Ears, Nose, and Throat was consulted, pending recommendation. However, she could get it evaluated outpatient. 3. Acute cystitis with prior history of multiple urinary tract infections and neurogenic bladder requiring self-catheterization, with Enterobacter urinary tract infection. Continue oral levofloxacin for 7 days and outpatient urology followup. We will remove Sykes catheter and continue her home intermittent self-catheterization. 4. Others. Continue alprazolam and amitriptyline for history of anxiety and insomnia; acetaminophen and tramadol for history of chronic neck and back pain; add MiraLAX for constipation. 5. Disposition. I have been informed that her health insurance has rejected [facility], so we are looking for other rehab options. Whenever that is available, the patient is okay to be discharged. Consults have been sent over, I think to either [facility] or [facility], I assume. Likely, patient will be discharged on Tuesday, since it is a weekend. Plan of care discussed with the patient and her family at bedside. All of their questions have been answered. cc: Alexander Antonio MD
[2018-11-18] MEDS: COZAAR PO SCH (11:00)
[2018-11-18] MEDS: TYLENOL ARTHRITIS PO SCH ×2 (11:04→21:59)
[2018-11-18] MEDS: ZANTAC PO SCH (11:04)
[2018-11-18] MEDS: LEVAQUIN PO SCH (11:04)
[2018-11-18] MEDS: HYDROCHLOROTHIAZIDE PO SCH (11:04)
[2018-11-18] MEDS: LIDODERM TOP SCH (11:04)
[2018-11-18] MEDS: ULTRAM ER PO SCH (11:06)
[2018-11-18] MEDS: XANAX PO SCH ×3 (11:08→21:59)
[2018-11-18] MEDS: NORVASC PO SCH (11:09)
[2018-11-18] MEDS: PRILOSEC PO SCH ×2 (11:09→22:00)
[2018-11-18] MEDS: PLAVIX PO SCH (11:09)
[2018-11-18] MEDS: MIRALAX PO SCH ×2 (11:09→22:00)
[2018-11-18] MEDS: ASPIRIN EC PO SCH (11:09)
--- NOTE | 2018-11-18 13:27 | PROGRESS NOTE ---
DATE: 11/18/2018 INTERVAL HISTORY: No acute events. SUBJECTIVE: Patient is feeling fine. She is complaining of some back pain and neck pain. She has not had a bowel movement in 3 days and she is requesting stool softeners. We discussed about her exam findings. We discussed about awaiting rehab placement. The patient denies any new complaints. VITALS: Temperature 97.6 degrees, pulse 89, respiratory rate 14, blood pressure 110/48, saturating 95% on room air. PHYSICAL EXAMINATION: She does not appear in acute distress. air entry bilaterally. No wheeze, rhonchi, crackles. Cardiovascular: S1, S2 normal. No murmur or gallop. Abdomen: Soft, nontender. No lower extremity edema. Neurologic: She is alert and oriented x3. She has visual impairment with both eyes. Her perception to light is present and she can imitate my movements. Her flatwork folder strength is 5/5. No dysdiadochokinesia. LABS: No CBC or BMP today. ASSESSMENT AND PLAN: 1. Acute left cerebellar hemispheric infarct. 2. Prior history of right cerebellar infarct. 3. History of vestibular neuritis. 4. Acute cystitis with multiple urinary tract infections. 5. Chronic anxiety. PLAN: Will do physical therapy, occupational therapy. Continue aspirin, Plavix and high-dose statin. Continue antihypertensive medication. Continue levofloxacin for enterobacter UTI. DISPOSITION: Awaiting bed availability at which time the patient will be transferred to rehab. The patient and her family agree with the plan. All of their questions have been answered. cc: Alexander Antonio MD MTDD
[2018-11-18] MEDS: METAMUCIL PO SCH (14:13)
--- NOTE | 2018-11-18 18:23 | PROGRESS NOTE ---
DATE: 11/18/2018 SUBJECTIVE: The patient reports feeling fine. Reports actually that she is not able to have bowel movements during the last few days. OBJECTIVE: Vital Signs: Temperature 98.5 degrees, heart rate 101, respiratory rate 20, blood pressure 138/69, O2 saturation 99% on room air. General: This is a 78-year-old, female, lying in bed, in no acute distress. Cardiovascular: S1, S2 heard. No murmurs, gallops, or rubs. Regular rate and rhythm. Respiratory: Clear bilaterally to auscultation. No work of breathing or using accessory muscles. Abdomen: Soft, nontender to palpation. Bowel sounds present. No organomegaly. Extremities: No clubbing, cyanosis, or edema. Peripheral pulses present in both legs. Neurological: She is alert and oriented x3. Visual impairment in both eyes. Motor strength 5/5 in both upper and lower extremities. LABORATORY DATA: Reviewed. ASSESSMENT AND PLAN: 1. Acute left cerebellar hemispheric infarct with past medical history of right cerebellar infarct leading to dizziness and nausea on presentation. At this point, we will continue with current management, in this case, aspirin, statin, and Plavix. Neurology is following this patient. Blood pressure medication has been resumed. Will continue to monitor. 2. History of vestibular neuritis. Aware. 3. Acute cystitis. We will continue with levofloxacin for 7 days total. 4. Disposition. At this point, patient is stable and patient is awaiting being sent to rehab. cc: Salomón Ordonez MD
[2018-11-18] MEDS: SINGULAIR PO SCH (21:59)
[2018-11-18] MEDS: LIPITOR PO SCH (21:59)
[2018-11-18] MEDS: ELAVIL PO SCH (22:00)
[2018-11-19] MEDS: ASPIRIN EC PO SCH (08:12)
[2018-11-19] MEDS: PRILOSEC PO SCH ×2 (08:12→22:40)
[2018-11-19] MEDS: COZAAR PO SCH (08:12)
[2018-11-19] MEDS: LEVAQUIN PO SCH (08:12)
[2018-11-19] MEDS: METAMUCIL PO SCH (08:12)
[2018-11-19] MEDS: TYLENOL ARTHRITIS PO SCH ×2 (08:13→22:39)
[2018-11-19] MEDS: ZANTAC PO SCH (08:14)
[2018-11-19] MEDS: PLAVIX PO SCH (08:14)
[2018-11-19] MEDS: HYDROCHLOROTHIAZIDE PO SCH (08:14)
[2018-11-19] MEDS: LIDODERM TOP SCH (08:15)
[2018-11-19] MEDS: NORVASC PO SCH (08:15)
[2018-11-19] MEDS: MIRALAX PO SCH ×2 (08:15→22:40)
[2018-11-19] MEDS: ULTRAM ER PO SCH (08:27)
[2018-11-19] MEDS: XANAX PO SCH ×3 (08:28→22:40)
--- NOTE | 2018-11-19 11:21 | PROGRESS NOTE ---
DATE: 11/19/2018 SUBJECTIVE: The patient reports feeling okay. No new neurological symptoms. OBJECTIVE: Vital signs: Temperature is 98.0, heart rate 91, respiratory rate 16, blood pressure 122/98, O2 saturation 92% on room air. General: The patient is an 78-year-old female lying in bed, in no acute distress. Cardiovascular: S1 and S2 heard. No murmurs, rubs or gallops. Regular rate and rhythm. Respiratory: Clear bilaterally to auscultation. No work of breathing or using accessory muscles. Abdomen is soft. Nontender to palpation. Bowel sounds present. No organomegaly. Extremities: No cyanosis, clubbing or edema. Peripheral pulses present in both legs. Neurologic: The patient is alert and oriented x3. The patient has visual impairment in both eyes. Motor strength 4 to 5/5 in both upper and lower extremities. ASSESSMENT AND PLAN: 1. Acute left cerebral hemispheric infarct with past medical history of right cerebral infarct leading to dizziness and nausea on presentation. At this point, the patient is stable. We will continue with aspirin, starting on Plavix. Neurology is following this patient. Plan for her is to send her to rehab facility. We will continue to monitor. 2. History of vestibular neuritis. Aware. 3. Acute cystitis. We will continue with levofloxacin to complete 7 days of antibiotics. 4. Disposition. We will continue to monitor this patient closely. At this point, she is stable and waiting for a rehab bed. cc: Salomón Ordonez MD
[2018-11-19] MEDS: ELAVIL PO SCH (22:39)
[2018-11-19] MEDS: LIPITOR PO SCH (22:40)
[2018-11-19] MEDS: SINGULAIR PO SCH (22:40)
[2018-11-20] MEDS: ULTRAM ER PO SCH (09:36)
[2018-11-20] MEDS: LIDODERM TOP SCH (09:36)
[2018-11-20] MEDS: ASPIRIN EC PO SCH (09:38)
[2018-11-20] MEDS: NORVASC PO SCH (09:38)
[2018-11-20] MEDS: TYLENOL ARTHRITIS PO SCH ×2 (09:38→21:09)
[2018-11-20] MEDS: ZANTAC PO SCH (09:38)
[2018-11-20] MEDS: METAMUCIL PO SCH (09:38)
[2018-11-20] MEDS: COZAAR PO SCH (09:39)
[2018-11-20] MEDS: PRILOSEC PO SCH ×2 (09:39→21:10)
[2018-11-20] MEDS: PLAVIX PO SCH (09:39)
[2018-11-20] MEDS: HYDROCHLOROTHIAZIDE PO SCH (09:39)
[2018-11-20] MEDS: LEVAQUIN PO SCH (09:39)
[2018-11-20] MEDS: MIRALAX PO SCH ×3 (09:40→21:10)
[2018-11-20] MEDS: XANAX PO SCH ×3 (09:40→21:10)
--- NOTE | 2018-11-20 10:04 | PROGRESS NOTE ---
DATE: 11/20/2018 Ms. Mcgregor is awake, alert, attentive. She continues to have dystaxia with the left arm. She does rapid alternating movements better with the right hand. There is no definite motor or sensory deficit. She has full visual thibodeaux. She has good lateral eye movements without nystagmus. Speech is not slurred now. She has been chewing and swallowing without difficulty. Disposition: She reports plans for discharge to rehab today. I concur with that plan. I will be glad to see her again if needed. Thanks for asking neurology to see Ms. Mcgregor cc: Genna Riley III, MD [facility]ia
--- NOTE | 2018-11-20 14:06 | PROGRESS NOTE ---
DATE: 11/20/2018 SUBJECTIVE: Patient reports feeling fine. No new neurological symptoms. No headaches. She reports some mild dizziness on and off. OBJECTIVE: Vital Signs: Temperature 98.3 degrees, heart rate 109, respiratory rate 16, blood pressure 128/60, O2 saturation 97% on room air. General Examination: This is a chronically ill- appearing 78-year-old female lying in bed, in no acute distress. Cardiovascular: S1, S2 heard. No murmurs, gallops, or rubs. Regular rate and rhythm. Respiratory: Clear bilaterally to auscultation. No work of breathing or using accessory muscles. Abdomen: Soft, nontender to palpation. Bowel sounds present. No organomegaly. Extremities: No clubbing, cyanosis, or edema. Peripheral pulses present in both legs. Neurological: Patient is alert and oriented x3. Motor strength 4/5 to 5/5 in both upper and lower extremities. ASSESSMENT AND PLAN: 1. 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 At this point, patient is stable. Neurology has been following her. The patient is on aspirin and also Plavix. At this point, patient is stable. 2. History of vestibular neuronitis. Aware. 3. Acute cystitis. We will continue levofloxacin to complete 7 days of antibiotics. DISPOSITION: At this point, we are waiting for her insurance company to get an approval to send her to rehabilitation facility. cc: Salomón Ordonez MD [facility]
[2018-11-20] MEDS: SINGULAIR PO SCH (21:09)
[2018-11-20] MEDS: LIPITOR PO SCH (21:09)
[2018-11-20] MEDS: ELAVIL PO SCH (21:10)
[2018-11-21] MEDS: HYDROCHLOROTHIAZIDE PO SCH ×2 (08:55→09:10)
[2018-11-21] MEDS: METAMUCIL PO SCH (08:55)
[2018-11-21] MEDS: PLAVIX PO SCH (08:56)
[2018-11-21] MEDS: ASPIRIN EC PO SCH (08:56)
[2018-11-21] MEDS: XANAX PO SCH ×2 (08:56→12:04)
[2018-11-21] MEDS: TYLENOL ARTHRITIS PO SCH (08:56)
[2018-11-21] MEDS: LEVAQUIN PO SCH (08:56)
[2018-11-21] MEDS: PRILOSEC PO SCH (08:56)
[2018-11-21] MEDS: COZAAR PO SCH ×2 (08:56→09:09)
[2018-11-21] MEDS: ZANTAC PO SCH (08:56)
[2018-11-21] MEDS: NORVASC PO SCH (08:56)
[2018-11-21] MEDS: LIDODERM TOP SCH ×2 (08:57→09:01)
[2018-11-21] MEDS: MIRALAX PO SCH (08:57)
[2018-11-21] MEDS: ULTRAM ER PO SCH (09:09)
--- NOTE | 2018-11-21 11:35 | DISCHARGE SUMMARY ---
ADMISSION DATE: 11/17/2018 DISCHARGE DATE: 11/21/2018 PRIMARY CARE PHYSICIAN: Dr. Gama Camacho. CONSULTATIONS: Consultations with Neurology and Cardiology. ADMISSION DIAGNOSIS: Labyrinth neuritis with severe vertigo accompanied by lateral nystagmus. DISCHARGE DIAGNOSES: 1. An acute left cerebellar hemispheric infarct with a past medical history of right cerebellar infarct. 2. History of vestibular neuronitis. 3. An acute cystitis. 4. Enterobacter cloacae complex urinary tract infection. SUMMARY OF FINDINGS: This is an 78-year-old female, who presented with a history of labyrinth neuritis and vertigo with spells that have been pretty severe. We did a CT of the head on 11/13/2018 that showed no hemorrhage, and an old right cerebellar infarct with chronic microvascular ischemic changes. We did a brain MRI on 11/14/2018 that showed an acute left cerebellar hemispheric infarct. An echocardiogram was done on 11/15/2018 that showed an ejection fraction of 69% with normal left ventricular function. 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 Ischemic changes in the cerebellum bilaterally, probably subacute on the left. Neurology was consulted on the tenth as well. Agreed with the current medication regimen and workup. The patient has been seen and followed by physical therapy and occupational therapy and speech therapy, and it is now felt that she can safely be discharged to rehab. DISCHARGE MEDICATIONS: Tylenol 650 mg 2 capsules p.o. b.i.d., Alprazolam 1 mg p.o. q.a.m. at noon and 1 mg p.o. at bedtime, amitriptyline 10 mg p.o. at bedtime, amlodipine 5 mg p.o. daily, aspirin 81 mg p.o. q.a.m., atorvastatin 10 mg p.o. at bedtime, Plavix 75 mg p.o. daily, hydrochlorothiazide 12.5 mg p.o. q.a.m., Levaquin 500 mg p.o. daily #3 with no refills, losartan 100 mg p.o. q.a.m., Montelukast sodium 10 mg p.o. q.p.m., omeprazole 20 mg p.o. b.i.d., MiraLAX 17 g p.o. b.i.d., Metamucil 1 p.o. daily, Zantac 150 mg p.o. q.a.m., tramadol 300 mg p.o. q.a.m., meclizine 12.5 mg p.o. t.i.d. p.r.n., Metamucil 1 p.o. daily. FOLLOW-UP: She will follow up with her primary care physician and with ENT, Dr. Negron, when she is discharged from her rehab. Appointments will be made at that time. TIME SPENT: This is a 35 minute discharge. Dictated by YAIR Son for Salomón Ordonez MD Addendum: Patient seen and examined by myself. Agree with YAIR note. It reflects my assessment and plan. Patient is being discharged from hospital in stable condition. Will be seen by PCP in a week. cc: YAIR Son MD Alan Walker, MD Benjamin W. Light, MD MTDD
[2018-11-21 12:37] VITALS: BP 119/70
== END 2018-11-21 14:19 | DRG 65 ==
LOC: ED 07:36 → SUATTDRO 14:16 → INTOOBSV 14:16 → 4N 14:16 → SUATTDRO 11-17 14:45
PROVIDERS: ATTEND Internal Medicine
CPT/HCPCS: 51702; 70450; 70496; 70498; 70553; 71010; 71045; 80048; 80053; 80101; 80301; 80307; 80324; 80345; 80346; 80353; 80358; 80361; 80365; 81001; 82607; 82746; 82948; 83992; 84439; 84443; 84484; 85025; 85027; 85610; 85730; 87077; 87088; 87186; 93005; 93306; 96361; 96365; 96375; 97110; 97116; 97162; 97166; 97530; 97535; 99285; A9270; A9579; G0431; G0434; G0479; G0480; J0696; J1200; J2060; J2405; J2550; J2765; J2930; J7030; J7040; Q9967; XXXXX